=== PATIENT | female | born 1980 | race Caucasian/White ===

== ENCOUNTER 2018-08-08 18:52 | Emergency (ER) | payer MEDICAID ==
[~2018-08-08] VITALS: Ht 160 cm; Wt 105.7 kg
[2018-08-08 19:09] VITALS: Ht 160 cm; Wt 105.7 kg
[2018-08-08 19:47] VITALS: BP 114/68
== END 2018-08-08 19:47 | disposition home or self-care (01) ==
LOC: ED 18:52
DX: J45.909 Unspecified asthma, uncomplicated (principal); Z98.890 Other specified postprocedural states